=== PATIENT | female | born 1955 ===

== ENCOUNTER 2017-02-25 06:34 | Day surgery (SDC) | payer MEDICARE, OTHER ==
[2017-01-09 09:13] VITALS: BMI 34.8
[2017-02-25 07:22] LABS: ADD MANUAL DIFF? NO
[2017-02-25 07:26] LABS: BASO # 0.02 K/mm3 (0.0-2.0); BASO % 0.4 % (0.0-3.0); EOS # 0.1 (0.0-0.7); EOS % 2.3 % (1.5-5.0); GRAN # 2.24 (1.4-6.5); GRAN % 42.3 % (50.0-68.0); HEMATOCRIT 37.7 % (36.0-48.0); LYMPH # 2.2 (1.2-3.4); LYMPH % 42.3 % (22.0-35.0); MEAN CELL VOLUME 71.1 fL (80.0-105.0); MEAN CORPUSCULAR HEMOGLOBIN 22.8 pg (25.0-35.0); MEAN CORPUSCULAR HGB CONC 32.1 g/dl (31.0-37.0); MONO # 0.7 (0.1-0.6); MONO % 12.7 % (1.0-6.0); PLATELET COUNT 173 10^3/uL (120.0-450.0); WHITE BLOOD COUNT 5.3 10^3/ul (4.5-11.0)
[2017-02-25 07:36] LABS: ALKALINE PHOSPHATASE 95 U/L (38-133); ALT/SGPT 37 U/L (7-56); AST/SGOT 36 U/L (15-39); BILIRUBIN,TOTAL 0.7 mg/dL (0.2-1.3); BLOOD UREA NITROGEN 27 mg/dL (7-21); CALCIUM 9.5 mg/dL (8.4-10.5); CARBON DIOXIDE 25 mmol/L (21-33); CHLORIDE 105 mmol/L (98-107); GFR AFRICAN-AMERICAN > 60; GLUCOSE,RANDOM 76 mg/dL (70-110); POTASSIUM 4.5 mmol/L (3.6-5.0); SODIUM 142 mmol/L (132-148); TOTAL PROTEIN 8.3 g/dL (5.8-8.3)
[2017-02-25 07:41] LABS: INR 0.97 (0.93-1.08); PARTIAL THROMBOPLASTIN TIME 31.5 Seconds (23.7-30.8)
[2017-02-25] MEDS ORDERED: Propofol 10 mg/ml Inj (20 ML) ONE (07:49)
[2017-02-25] MEDS ORDERED: Lidocaine 2% Inj (20ml) ONE (07:50)
[2017-02-25] MEDS ORDERED: Rocuronium 10 mg/ml (5 ml) ONE (07:50)
[2017-02-25] MEDS ORDERED: Succinylcholine 200 mg/10 ml Inj IV ONE (07:50)
[2017-02-25] MEDS ORDERED: Midazolam 2 MG/2 ML VIAL ONE (07:50)
[2017-02-25] MEDS ORDERED: Bupivacaine 0.5% Inj(30mL) ONE (08:46)
[2017-02-25] MEDS ORDERED: Phenylephrine 10 mg/ml Inj ONE (09:03)
[2017-02-25] MEDS ORDERED: Neostigmine Methylsulfate 3mg/3ml Syringe IV ONE (09:56)
[2017-02-25] MEDS ORDERED: Glycopyrrolate 0.2 mg/ml (2ml vial) ONE (09:56)
[2017-02-25] MEDS ORDERED: Oxycodone/Acetaminophen 5/325 mg Tab PO PRN (12:16)
--- NOTE | 2017-02-25 12:16 | PCM.SURG1 ---
Surgeon's Initial Post Op Note - Surgeon's Notes Surgeon: Dr. Mendez Bsa Officer: Dr. Mojica PGY-2 Type of Anesthesia: General Endo Anesthesia Administered By: Dr. Garcia Pre-Operative Diagnosis: Incarcerated ventral hernia Operative Findings: See operative report Post-Operative Diagnosis: Same Operation Performed: 1) Laparoscopic Ventral Hernia repair with mesh 2) Lysis of adhesions Specimen/Specimens Removed: none Estimated Blood Loss: EBL {In ML}: 20 Blood Products Given: N/A Post-Op Condition: Good Date of Surgery/Procedure: 02/25/17 Time of Surgery/Procedure: 12:16
[2017-02-25] MEDS ORDERED: HYDROmorphone 0.5 mg/0.5 ml ISec IVP PRN (12:17)
[2017-02-25] MEDS ORDERED: Sodium Chloride 0.9% 1,000 ML IV SCH (12:30)
[2017-02-25 14:05] VITALS: RESP 18; TEMP 97.4
[2017-02-25 14:55] VITALS: PULSE 82; O2SAT 97
[2017-02-25 16:24] VITALS: BP 116/73
--- NOTE | 2017-02-27 15:05 | OP ---
PROCEDURE DATE: 02/25/2017 SURGEON: Chon Mendez MD TELECOMMUNICATIONS SWITCH TECHNICIAN: Yelena Mojica DO, PGY-2. REGISTERED SALES ASSISTANT: Dr. Garcia. ANESTHESIA: General endotracheal -- Marcaine 0.5-22 mL. PREOPERATIVE DIAGNOSES: 1. Ventral hernia, questionably reducible. 2. Hypertension. 3. Degenerative joint disease. 4. Adhesions. POSTOPERATIVE DIAGNOSES: 1. Ventral hernia, incarcerated. 2. Umbilical hernia, incarcerated. 3. Dense abdominal adhesions. PROCEDURE: 1. Laparoscopic ventral and umbilical herniorrhaphy with mesh. 2. Lysis of abdominal adhesions. OPERATIVE INDICATION: The patient is a 61-year-old [place] female with a progressively wor sening and symptomatic left mid abdominal bulge. She had had a ruptured appendix several years earli er and at the drain site in the left side where the incision was made, the patient has a large mass t hat initially was thought to be reducible, but is found at this operation to be incarcerated. Risks, benefits, and alternatives with their anticipated outcomes were discussed with the patient and with her sibling, Yoon Cox, and they both signed for the informed consent and the anesthesia. OPERATIVE NOTE: The patient is brought to the operating room. She is prepared in the same day surge ry where the site has been marked and she has been loaded with intravenous fluid and parenteral antib iotic. She undergoes timeout procedure and identification of her wrist band and is placed on the tab le in a supine manner. Following the induction of general anesthesia and the insertion of an endotra cheal tube, a Jeroem catheter is inserted and the patient is placed in lithotomy supine position. The abdomen is prepped with Hibiclens, chlorhexidine preparation and the patient is aseptically drape d. The previous umbilical incision is infiltrated and a Veress needle inserted without ability to enter into the peritoneal cavity easily and then eventually the abdomen is insufflated with carbon dioxide gas. Incision is made approximately 2 cm above the umbilicus and using a direct vision scope, the bl aded 10 trocar is inserted into the peritoneal cavity and the abdomen explored. Surprisingly, 2 akua ias are found, one at the level of the umbilicus and the other one at the left side of the abdomen. Two 5 mm trocars are inserted in the right abdomen above and below the umbilicus. The patient is rot ated to the right and adhesions are sharply lysed at the peritoneal reflection and using retraction t echnique, the incarcerated omentum is removed and hemostasis is contained. A #1 V-Tack suture is employed to close the left-sided ventral hernia and once this is satisfactorily done, a mesh is placed over the area and secured with tacking sutures. Video is taken of this parti cular mesh. The umbilical hernia at this point is a problem and requires similar repair and is closed with an exi t closure device and 2-0 PDS suture placed from the outside of the abdomen. An epigastric 10 mm trocar site that was used for the camera has been now closed with 2-0 PDS interru pted sutures and the skin incisions are all closed with 4-0 Biosyn and Dermabond adhesive. The patient is awakened, extubated and transported to the recovery room in a satisfactory condition. Sponge, instrument and suture counts were verified as correct at the end of the procedure. Estimate d blood loss during this procedure was less than 60 mL of blood. This dictation will be electronically signed without being read. The salesperson surgical appliances was present throughout the entire procedure and was extremely helpful in expos ing the various hernias and performing the herniorrhaphy with the attending physician also performing the procedure. Chon Mendez MD cc: [id number] TT: 02/27/2017 11:33:03 tn
== END 2017-02-25 16:55 | disposition home or self-care (01) ==
LOC: SDS 06:34 → EDUNIT# 09:00 → SDS 16:55
PROVIDERS: ATTEND Surgery
DX: K43.6 Other and unspecified ventral hernia with obstruction, without gangrene (principal); K42.0 Umbilical hernia with obstruction, without gangrene; I10 Essential (primary) hypertension; M19.90 Unspecified osteoarthritis, unspecified site; K66.0 Peritoneal adhesions (postprocedural) (postinfection)
CPT/HCPCS: 36415; 49329; 49653; 80053; 85025; 85610; 85730; 86850; 86900; C1781; J0330; J0690; J1170; J2250; J2370; J2405; J2704; J2710; J3010; J7040; J7120